=== PATIENT | female | born 1980 | race Two or more races ===

== ENCOUNTER 2016-09-01 12:59 | Emergency (ER) | payer MEDICAID ==
[~2016-09-01] VITALS: Ht 157.5 cm; Wt 117.9 kg
[~2016-09-01 12:59] MED LIST: ASPITAB34; IBUP800T41; TRAM-411
[2016-09-01] MEDS ORDERED: IPRATROPIUM BROM 0.5 MG/2.5ML INH SOL NEB ONE ×2 (13:45→16:00)
[2016-09-01] MEDS ORDERED: ALBUTEROL SULF 2.5 MG/0.5ML(0.5%) NEB SOLN NEB ONE ×2 (13:45→16:00)
[2016-09-01 15:50] VITALS: BP 127/86
[2016-09-01] MEDS ORDERED: methylPREDNISolone SOD SUCC 125 MG/2 ML VL IM ONE (16:00)
== END 2016-09-01 17:02 | disposition home or self-care (01) ==
LOC: ER 13:07
DX: J45.901 Unspecified asthma with (acute) exacerbation (principal)
CPT/HCPCS: 71020; 94640; 96372; 99284; J2930

== ENCOUNTER 2024-01-04 02:02 | Emergency (ER) | payer MEDICAID ==
[~2024-01-04] VITALS: Ht 167.6 cm; Wt 109.0 kg
[2024-01-04 02:18] VITALS: BP 137/75; PULSE 53; RESP 20; TEMP 97.6; O2SAT 100
[2024-01-04] MEDS: ONDANSETRON ODT 4 MG TAB PO ONE (02:45)
[2024-01-04 03:22] LABS: Alanine Aminotransferase 10 U/L (7-40); Albumin 4.3 g/dL (3.2-4.8); Alkaline Phosphatase 88 U/L (46-116); Anion Gap 8 (5-15); Aspartate Aminotransferase 11 U/L (13-40); Blood Urea Nitrogen 12 mg/dL (9-23); Calcium 9.2 mg/dL (8.7-10.4); Carbon Dioxide 24 mmol/L (20-30); Chloride 106 mmol/L (98-107); Glucose 120 mg/dL (74-106); Lipase 45 U/L (12-53); Potassium 4.4 mmol/L (3.5-5.1); Sodium 138 mmol/L (136-145)
[2024-01-04 03:23] LABS: Bilirubin, Total 0.3 mg/dL (0.2-1.0); Total Protein 7.4 g/dL (5.7-8.2)
[2024-01-04] MEDS ORDERED: ZOFR4T PO (03:33)
[2024-01-04 03:34] LABS: Monocytes % (auto) 4.2 % (0.0-12.0)
[2024-01-04 03:35] LABS: Basophils # (auto) 0.1 10 ^3/uL (0-0.2); Eosinophils # (auto) 0.1 10 ^3/uL (0-0.8); Hemoglobin 12.3 g/dL (12.2-16.2); Lymphocytes # (auto) 1.8 10 ^3/uL (0.4-5.4); Mean Corpuscular Volume 84.9 fL (80.0-100.0); Monocytes # (auto) 0.7 10 ^3/uL (0-1.3)
[2024-01-04 03:36] LABS: Basophils % (auto) 0.7 % (0.0-2.0); Eosinophils % (auto) 0.4 % (0.0-7.0); Hematocrit 38.1 % (36.0-46.0); Lymphocytes % (auto) 11.2 % (10.0-50.0); Mean Corpuscular Hemoglobin 27.5 pg (28.0-32.0); Mean Corpuscular Hgb Conc. 32.3 g/dL (32.0-36.0); Neutrophils # (auto) 13.3 10 ^3/uL (1.6-8.6); Neutrophils % (auto) 83.5 % (37.0-80.0); Red Blood Cells 4.48 10^6/uL (4.0-5.20); Red Cell Distribution Width 14.2 % (11.8-14.3); White Blood Cell 15.9 10^3/uL (4.4-10.8)
[2024-01-04] MEDS: KETOROLAC TROMETH 60MG/2ML VIAL IM ONE (03:47)
[2024-01-04] MEDS: ONDANSETRON HCL 4 MG/2 ML VIAL IM ONE (03:48)
== END 2024-01-04 03:49 | disposition home or self-care (01) ==
LOC: ER 02:02
DX: A05.9 Bacterial foodborne intoxication, unspecified (principal); J45.909 Unspecified asthma, uncomplicated; Z79.1 Long term (current) use of non-steroidal anti-inflammatories (NSAID); Z79.82 Long term (current) use of aspirin; Z79.899 Other long term (current) drug therapy
CPT/HCPCS: 36415; 80053; 83690; 85025; 96372; 99284; J1885; J2405; Q0162